=== PATIENT | male | born 1965 | race Caucasian/White ===

== ENCOUNTER 2018-05-13 11:34 | Emergency (ER) | payer OTHER, MEDICAID, SELFPAY ==
[2018-05-13 11:41] VITALS: BP 158/87; PULSE 77; RESP 15; TEMP 36.9; O2SAT 97; BMI 27.8
--- NOTE | 2018-05-13 11:41 | DI.RAD.S_ITS ---
PROCEDURE: XR HAND RT MIN 3V INDICATIONS: injury TECHNIQUE: 3 views of the hand(s) acquired. COMPARISON: None. FINDINGS: Bones: No fractures or dislocations. Carpal bones are normally aligned. No suspicious bony lesions. There is moderately severe arthritic changes at the interphalangeal joints. Bone cyst with sclerotic rim is present in the third metacarpal head. Soft tissues: No suspicious soft tissue calcifications. IMPRESSION: 1. Negative for fracture. 2. Osteoarthritis. Dictated by: Stephane Huang M.D. on 05/13/2018 at 12:01 Approved by: Stephane Huang M.D. on 05/13/2018 at 12:03
--- NOTE | 2018-05-13 12:20 | PC.NURSE ---
Pt seen at [facility] last night for sutures w/ suspected tendon injury. Here because pain was increased and [facility] thought another x ray was indicated. Sutures intact w/ bacitracin on wounds. Noted redness and warmth / swelling around sutures on right nuckles. Pt does have limited movement r/t known tendon injury and has referral to hand surgeon. Has been taking keflex for infection. Refused offer of tylenol for pain.
--- NOTE | 2018-05-13 12:32 | ED.UPPEXIN ---
HPI - Extremity Injury (Upper) <Shiloh Dailey PA-C - Last Filed: 05/13/18 15:01> General Chief Complaint: Extremity Injury, Upper Stated Complaint: CRUSH INJURY RIGHT HAND, WANTS IT RE-EVALUATED Time Seen by Provider: 05/13/18 12:32 Source: patient Mode of arrival: ambulatory Limitations: no limitations History of Present Illness HPI narrative: This 52-year-old R. handed gentleman accidentally put his right hand through a window yesterday that slipped when he was holding it. [place]. He had a small wound suture. He was referred to Orthopedics and put on antibiotics, but his appointment is not until the . Today he has had swelling and states it is really painful when the finger moves down words. He is not able to move it due to weakness and pain, and is concerned that there is some other injury. He states he had pain all night, but thinks that this will resolve when the finger is immobilized. He denies any fever, chills or sweats or other new complaints on systems review. He states that his last tetanus shot was in the last couple of years. Related Data Home Medications Medication Instructions Recorded Confirmed bupropion HCl 300 mg PO DAILY 05/13/18 05/13/18 cephalexin 500 mg PO BID 05/13/18 05/13/18 ibuprofen 400 mg PO QID PRN 05/13/18 05/13/18 Allergies Allergy/AdvReac Type Severity Reaction Status Date / Time No Known Drug Allergies Allergy Verified 05/13/18 11:41 Review of Systems <Shiloh Dailey PA-C - Last Filed: 05/13/18 15:01> Review of Systems All systems reviewed & are unremarkable except as noted in HPI and below Exam <Shiloh Dailey PA-C - Last Filed: 05/13/18 15:01> Initial Vital Signs Initial Vital Signs: Vital Signs Temperature 98.4 F 05/13/18 11:41 Pulse Rate 77 05/13/18 11:41 Respiratory Rate 15 05/13/18 11:41 Blood Pressure 158/87 H 05/13/18 11:41 Pulse Oximetry 97 05/13/18 11:41 GENERAL APPEARANCE: Patient sitting comfortably, in no distress. LUNGS: Clear to auscultation bilaterally. HEART: Rate and rhythm regular without murmur, normal S1 and S2, no S3 or S4. EXTREMITIES: R. hand warm and pink with sensation grossly intact, fingers with brisk cap refill DERM: R. hand mild erythema over the mid MC joints, no warmth or d/c. Scabbing on the 2nd and 3rd MC. Wrist is bandaged over sutures, no d/c MS: All of the right hand fingers are nodular. There is mild edema over the 2nd and 3rd MCP joints. Moderately tender. Strength is intact against resistance in all fingers except for the right middle finger, which he is able to extend but not able to flex or resist medial or lateral deviation against resistance. NEURO: sensation in the R. hand fingers is grossly intact <Hyun Grady DO - Last Filed: 05/14/18 07:33> Initial Vital Signs Initial Vital Signs: Vital Signs Temperature 98.4 F 05/13/18 11:41 Pulse Rate 77 05/13/18 11:41 Respiratory Rate 15 05/13/18 11:41 Blood Pressure 158/87 H 05/13/18 11:41 Pulse Oximetry 97 05/13/18 11:41 Course <Shiloh Dailey PA-C - Last Filed: 05/13/18 15:01> Hospital Course: I spoke with Dr. Solis, office nurse practitioner for orthopedics re: seemingly atypical flexor injury. Reviewed findings from today and previous ED record as well as my concern that patient needed to be seen fairly quickly. He had originally been referred from an outside ED for an appointment elsewhere on the . She advised that their earliest appointment would be on the . She agreed that this injury seemed atypical for wound locations, but did feel it was safe for patient to wait until then to be seen by Orthopedics. Reviewed he is on antibiotics and we did splint for comfort. In the interim, original referral office called and were able to reschedule patient with Dr. Lui 05/20, so he plans to be seen then. I discussed that in the interim he must be seen or return to ED right away if signs of infection or worsening symptoms, and he is agreeable. He will continue antibiotic cephalexin that he was prescribed yesterday. Finger was splinted in extension and shannan-taped for comfort Orders Ordered: Discontinued Medications Gabapentin (Neurontin) 900 mg PO NOW ONE Stop: 05/13/18 12:37 Last Admin: 05/13/18 13:03 Dose: Ibuprofen (Advil) 800 mg PO NOW ONE Stop: 05/13/18 13:47 Last Admin: 05/13/18 13:54 Dose: 800 mg Vital Signs - 8 hr 05/13/18 11:41 05/13/18 13:34 Temperature 98.4 F Pulse Rate 77 70 Respiratory Rate 15 16 Blood Pressure 158/87 H Blood Pressure [Left Arm] 128/82 H Pulse Oximetry 97 97 <Hyun Grady DO - Last Filed: 05/14/18 07:33> Orders Ordered: Discontinued Medications Gabapentin (Neurontin) 900 mg PO NOW ONE Stop: 05/13/18 12:37 Last Admin: 05/13/18 13:03 Dose: Ibuprofen (Advil) 800 mg PO NOW ONE Stop: 05/13/18 13:47 Last Admin: 05/13/18 13:54 Dose: 800 mg Vital Signs - 8 hr 05/13/18 11:41 05/13/18 13:34 Temperature 98.4 F Pulse Rate 77 70 Respiratory Rate 15 16 Blood Pressure 158/87 H Blood Pressure [Left Arm] 128/82 H Pulse Oximetry 97 97 MDM - Extremity Injury (Upper) <Shiloh Dailey PA-C - Last Filed: 05/13/18 15:01> Imaging Data hand: Radiologist's impression: [place] [address] XRay Report Signed Patient: Andres Arriaga MR#: [id number] : 1965 Acct:[id number] Age/Sex: 52 / M Date of Service: 05/13/18 Loc: ED Accession Number: [id number] Procedure: XR hand RT min 3V Ordering Provider: Hyun Grady D.O. PROCEDURE: XR HAND RT MIN 3V INDICATIONS: injury TECHNIQUE: 3 views of the hand(s) acquired. COMPARISON: None. FINDINGS: Bones: No fractures or dislocations. Carpal bones are normally aligned. No suspicious bony lesions. There is moderately severe arthritic changes at the interphalangeal joints. Bone cyst with sclerotic rim is present in the third metacarpal head. Soft tissues: No suspicious soft tissue calcifications. [address] [address] XRay Report Signed Patient: Andres Arriaga MR#: [id number] : 1965 Acct:[id number] Age/Sex: 52 / M Date of Service: 05/13/18 Loc: ED Accession Number: [id number] Procedure: XR hand RT min 3V Ordering Provider: Hyun Grady D.O. PROCEDURE: XR HAND RT MIN 3V INDICATIONS: injury TECHNIQUE: 3 views of the hand(s) acquired. COMPARISON: None. FINDINGS: Bones: No fractures or dislocations. Carpal bones are normally aligned. No suspicious bony lesions. There is moderately severe arthritic changes at the interphalangeal joints. Bone cyst with sclerotic rim is present in the third metacarpal head. Soft tissues: No suspicious soft tissue calcifications. IMPRESSION: 1. Negative for fracture. 2. Osteoarthritis. Dictated by: Stephane Huang M.D. on 05/13/2018 at 12:01 Approved by: Stephane Huang M.D. on 05/13/2018 at 12:03 Discharge Plan Departure Patient Disposition: Home, Self-Care Clinical Impression: Injury of tendon of finger, Hand laceration Discharge Date/Time: 05/13/18 14:30 Interventions: ED Discharge Assessment Last Done: 05/13/18 14:29 Instructions: DI for Finger Flexor Tendon Injury Activity Restrictions/Additional Instructions: Return to the nearest ED or your PCP if you have any spreading redness of the skin, increased pain, swelling, new fever or draining pus while waiting for your follow up appointment. I spoke with Dr. Solis from orthopedics today who will see you next week to evaluate your tendon function. She felt that it was reasonable for you to be seen next week, but in the interim you should keep this splinted for protection and comfort. Take ibuprofen, 800 mg every 8 hr with food routinely for the next couple of days, then as needed for pain. Your appointment is at [address] [place] [address] in [facility], 10:50 a.m. check in on May 21 Prescriptions: No Action bupropion HCl 300 mg tablet extended release 24 hr 300 mg PO DAILY RF: 0 cephalexin 500 mg Capsule 500 mg PO BID RF: 0 ibuprofen 400 mg Tablet 400 mg PO QID PRN (Reason: Pain (Scale Score 4-6)) RF: 0 Referrals: Hilario Pagan MD [Other] Geoff Lui MD [Non-Staff] - <yHun Grady DO - Last Filed: 05/14/18 07:33> Cosign ED Attending Angelitaature Attestation: I was immediately available in the department for consultation. Documentation has been reviewed. I agree with assessment and plan.
--- NOTE | 2018-05-13 12:40 | ED_ITS ---
HPI - Extremity Injury (Upper) <Shiloh Dailey PA-C - Last Filed: 05/13/18 15:01> General Chief Complaint: Extremity Injury, Upper Stated Complaint: CRUSH INJURY RIGHT HAND, WANTS IT RE-EVALUATED Time Seen by Provider: 05/13/18 12:32 Source: patient Mode of arrival: ambulatory Limitations: no limitations History of Present Illness HPI narrative: This 52-year-old R. handed gentleman accidentally put his right hand through a window yesterday that slipped when he was holding it. [place] was found. He had a small wound suture. He was referred to Orthopedics and put on antibiotics, but his appointment is not until the . Today he has had swelling and states it is really painful when the finger moves down words. He is not able to move it due to weakness and pain, and is concerned that there is some other injury. He states he had pain all night, but thinks that this will resolve when the finger is immobilized. He denies any fever, chills or sweats or other new complaints on systems review. He states that his last tetanus shot was in the last couple of years. Related Data Home Medications Medication Instructions Recorded Confirmed bupropion HCl 300 mg PO DAILY 05/13/18 05/13/18 cephalexin 500 mg PO BID 05/13/18 05/13/18 ibuprofen 400 mg PO QID PRN 05/13/18 05/13/18 Allergies Allergy/AdvReac Type Severity Reaction Status Date / Time No Known Drug Allergies Allergy Verified 05/13/18 11:41 Review of Systems <Shiloh Dailey PA-C - Last Filed: 05/13/18 15:01> Review of Systems All systems reviewed & are unremarkable except as noted in HPI and below Exam <Shiloh Dailey PA-C - Last Filed: 05/13/18 15:01> Initial Vital Signs Initial Vital Signs: Vital Signs Temperature 98.4 F 05/13/18 11:41 Pulse Rate 77 05/13/18 11:41 Respiratory Rate 15 05/13/18 11:41 Blood Pressure 158/87 H 05/13/18 11:41 Pulse Oximetry 97 05/13/18 11:41 GENERAL APPEARANCE: Patient sitting comfortably, in no distress. LUNGS: Clear to auscultation bilaterally. HEART: Rate and rhythm regular without murmur, normal S1 and S2, no S3 or S4. EXTREMITIES: R. hand warm and pink with sensation grossly intact, fingers with brisk cap refill DERM: R. hand mild erythema over the mid MC joints, no warmth or d/c. Scabbing on the 2nd and 3rd MC. Wrist is bandaged over sutures, no d/c MS: All of the right hand fingers are nodular. There is mild edema over the 2nd and 3rd MCP joints. Moderately tender. Strength is intact against resistance in all fingers except for the right middle finger, which he is able to extend but not able to flex or resist medial or lateral deviation against resistance. NEURO: sensation in the R. hand fingers is grossly intact <Hyun Grady DO - Last Filed: 05/14/18 07:33> Initial Vital Signs Initial Vital Signs: Vital Signs Temperature 98.4 F 05/13/18 11:41 Pulse Rate 77 05/13/18 11:41 Respiratory Rate 15 05/13/18 11:41 Blood Pressure 158/87 H 05/13/18 11:41 Pulse Oximetry 97 05/13/18 11:41 Course <Shiloh Dailey PA-C - Last Filed: 05/13/18 15:01> Hospital Course: I spoke with Dr. Solis, accordion repairer for orthopedics re: seemingly atypical flexor injury. Reviewed findings from today and previous ED record as well as my concern that patient needed to be seen fairly quickly. He had originally been referred from an outside ED for an appointment elsewhere on the . She advised that their earliest appointment would be on the . She agreed that this injury seemed atypical for wound locations, but did feel it was safe for patient to wait until then to be seen by Orthopedics. Reviewed he is on antibiotics and we did splint for comfort. In the interim, original referral office called and were able to reschedule patient with Dr. Lui 05/20, so he plans to be seen then. I discussed that in the interim he must be seen or return to ED right away if signs of infection or worsening symptoms, and he is agreeable. He will continue antibiotic cephalexin that he was prescribed yesterday. Finger was splinted in extension and shannan-taped for comfort Orders Ordered: Discontinued Medications Gabapentin (Neurontin) 900 mg PO NOW ONE Stop: 05/13/18 12:37 Last Admin: 05/13/18 13:03 Dose: Ibuprofen (Advil) 800 mg PO NOW ONE Stop: 05/13/18 13:47 Last Admin: 05/13/18 13:54 Dose: 800 mg Vital Signs - 8 hr 05/13/18 11:41 05/13/18 13:34 Temperature 98.4 F Pulse Rate 77 70 Respiratory Rate 15 16 Blood Pressure 158/87 H Blood Pressure [Left Arm] 128/82 H Pulse Oximetry 97 97 <Hyun Grady DO - Last Filed: 05/14/18 07:33> Orders Ordered: Discontinued Medications Gabapentin (Neurontin) 900 mg PO NOW ONE Stop: 05/13/18 12:37 Last Admin: 05/13/18 13:03 Dose: Ibuprofen (Advil) 800 mg PO NOW ONE Stop: 05/13/18 13:47 Last Admin: 05/13/18 13:54 Dose: 800 mg Vital Signs - 8 hr 05/13/18 11:41 05/13/18 13:34 Temperature 98.4 F Pulse Rate 77 70 Respiratory Rate 15 16 Blood Pressure 158/87 H Blood Pressure [Left Arm] 128/82 H Pulse Oximetry 97 97 MDM - Extremity Injury (Upper) <Shiloh Dailey PA-C - Last Filed: 05/13/18 15:01> Imaging Data hand: Radiologist's impression: [place] [address] XRay Report Signed Patient: Andres Arriaga MR#: [id number] : 1965 Acct:[id number] Age/Sex: 52 / M Date of Service: 05/13/18 Loc: ED Accession Number: [id number] Procedure: XR hand RT min 3V Ordering Provider: Hyun Grady D.O. PROCEDURE: XR HAND RT MIN 3V INDICATIONS: injury TECHNIQUE: 3 views of the hand(s) acquired. COMPARISON: None. FINDINGS: Bones: No fractures or dislocations. Carpal bones are normally aligned. No suspicious bony lesions. There is moderately severe arthritic changes at the interphalangeal joints. Bone cyst with sclerotic rim is present in the third metacarpal head. Soft tissues: No suspicious soft tissue calcifications. [address] [address] XRay Report Signed Patient: Andres Arriaga MR#: [id number] : 1965 Acct:[id number] Age/Sex: 52 / M Date of Service: 05/13/18 Loc: ED Accession Number: [id number] Procedure: XR hand RT min 3V Ordering Provider: Hyun Grady D.O. PROCEDURE: XR HAND RT MIN 3V INDICATIONS: injury TECHNIQUE: 3 views of the hand(s) acquired. COMPARISON: None. FINDINGS: Bones: No fractures or dislocations. Carpal bones are normally aligned. No suspicious bony lesions. There is moderately severe arthritic changes at the interphalangeal joints. Bone cyst with sclerotic rim is present in the third metacarpal head. Soft tissues: No suspicious soft tissue calcifications. IMPRESSION: 1. Negative for fracture. 2. Osteoarthritis. Dictated by: Stephane Huang M.D. on 05/13/2018 at 12:01 Approved by: Stephane Huang M.D. on 05/13/2018 at 12:03 Discharge Plan Departure Patient Disposition: Home, Self-Care Clinical Impression: Injury of tendon of finger, Hand laceration Discharge Date/Time: 05/13/18 14:30 Interventions: ED Discharge Assessment Last Done: 05/13/18 14:29 Instructions: DI for Finger Flexor Tendon Injury Activity Restrictions/Additional Instructions: Return to the nearest ED or your PCP if you have any spreading redness of the skin, increased pain, swelling, new fever or draining pus while waiting for your follow up appointment. I spoke with Dr. Solis from orthopedics today who will see you next week to evaluate your tendon function. She felt that it was reasonable for you to be seen next week, but in the interim you should keep this splinted for protection and comfort. Take ibuprofen, 800 mg every 8 hr with food routinely for the next couple of days, then as needed for pain. Your appointment is at [address] [place] [address] in [facility], 10:50 a.m. check in on May 21 Prescriptions: No Action bupropion HCl 300 mg tablet extended release 24 hr 300 mg PO DAILY RF: 0 cephalexin 500 mg Capsule 500 mg PO BID RF: 0 ibuprofen 400 mg Tablet 400 mg PO QID PRN (Reason: Pain (Scale Score 4-6)) RF: 0 Referrals: Hilario Pagan MD [Other] Geoff Lui MD [Non-Staff] - <Hyun Grady DO - Last Filed: 05/14/18 07:33> Cosign ED Attending Angelitaature Attestation: I was immediately available in the department for consultation. Documentation has been reviewed. I agree with assessment and plan.
[2018-05-13 13:34] VITALS: BP 128/82; PULSE 70; RESP 16; O2SAT 97
[2018-05-13] MEDS: IBUPROFEN 400 MG TABLET 800 MG PO (13:54)
== END 2018-05-13 14:30 | disposition home or self-care (01) ==
PROVIDERS: Emergency Provider Internal Medicine
DX: S69.91XA Unspecified injury of right wrist, hand and finger(s), initial encounter (principal); S61.411A Laceration without foreign body of right hand, initial encounter; W25.XXXA Contact with sharp glass, initial encounter
CPT/HCPCS: 29130; 73130; 99282; 99283

== ENCOUNTER 2018-08-12 12:38 | Emergency (ER) | payer OTHER, MEDICAID, SELFPAY ==
[2018-08-12 12:45] VITALS: BP 135/80; PULSE 96; RESP 14; TEMP 37.1; O2SAT 95; BMI 25.1
--- NOTE | 2018-08-12 12:48 | DI.RAD.S_ITS ---
PROCEDURE: XR CLAVICLE LT INDICATIONS: injury TECHNIQUE: 2 views of the clavicle were acquired. COMPARISON: [facility], , CHEST 1 VIEW, 02/25/2016, 8:38. FINDINGS: Bones: There is a fracture of the distal clavicular shaft with 2.7 cm superior displacement of the proximal fracture fragment. No suspicious bony lesions. Soft tissues: No suspicious soft tissue calcifications. IMPRESSION: Distal clavicular shaft fracture with displacement. Dictated by: Alexx Wall M.D. on 08/12/2018 at 13:15 Approved by: Alexx Wall M.D. on 08/12/2018 at 13:18
--- NOTE | 2018-08-12 14:08 | ED.UPPEXIN ---
HPI - Extremity Injury (Upper) <Shiloh Dailey PA-C - Last Filed: 08/12/18 19:04> General Chief Complaint: Extremity Injury, Upper Stated Complaint: 'CLAVICAL BROKEN IN THREE PLACES' Time Seen by Provider: 08/12/18 14:06 Source: patient Mode of arrival: ambulatory Limitations: no limitations History of Present Illness HPI narrative: this 53-year-old right handed gentleman fractured his left clavicle on Thursday (he is right-handed ). He states that he does not quite know how he fell, but states that he was loading his tall work truck and bent over with a load in his hand and somehow fell. He states he did hit his head, lose consciousness. He was seen at the local hospital and states he had numerous studies including head CT. All were negative aside from finding fracture in the clavicle. He describes some reduction of that being done. He states he has been wearing his sling and has been doing okay but when he was coming off of the [place] today he felt like the fracture slipped out or moved. He states he had more severe pain after that which is somewhat improved now. He states he had some numbness / tingling in the hand shortly after the incident that improved, but now has some tingling in his medial 3 fingers. He denies any weakness in the hand or other new complaints. Related Data Home Medications Medication Instructions Recorded Confirmed bupropion HCl 1 tab PO DAILY 08/12/18 08/12/18 Allergies Allergy/AdvReac Type Severity Reaction Status Date / Time No Known Drug Allergies Allergy Verified 08/12/18 12:45 Review of Systems <Shiloh Dailey PA-C - Last Filed: 08/12/18 19:04> Review of Systems All systems reviewed & are unremarkable except as noted in HPI and below Exam <Shiloh Dailey PA-C - Last Filed: 08/12/18 19:04> Narrative Exam Narrative: GENERAL APPEARANCE: Patient sitting comfortably, in no distress. LUNGS: Clear to auscultation bilaterally. HEART: Rate and rhythm regular without murmur, normal S1 and S2, no S3 or S4. MS: Slight skin teinting and visible/palpable deformity of L. distal clavicle with tenderness to touch. UE is in sling. [employer] strength 5/5. NEUROVASCULAR: L. UE sensation grossly intact, radial and ulnar pulses 2+, fingertips are warm and pink Initial Vital Signs Initial Vital Signs: Vital Signs Temperature 98.8 F 08/12/18 12:45 Pulse Rate 96 H 08/12/18 12:45 Respiratory Rate 14 08/12/18 12:45 Blood Pressure 135/80 08/12/18 12:45 Pulse Oximetry 95 08/12/18 12:45 <DO Linda Alamo Last Filed: 08/13/18 08:45> Initial Vital Signs Initial Vital Signs: Vital Signs Temperature 98.8 F 08/12/18 12:45 Pulse Rate 96 H 08/12/18 12:45 Respiratory Rate 14 08/12/18 12:45 Blood Pressure 135/80 08/12/18 12:45 Pulse Oximetry 95 08/12/18 12:45 Course <HERBERT Kennedy Last Filed: 08/12/18 19:04> Course Narrative: Dr. Batres construction driller for orthopedics has seen patient and reviewed films and recommended operative repair. Patient did eat a bit earlier so he has advised this can be done tomorrow. Patient is scheduled for tomorrow afternoon and will return to the hospital. Preoperative instructions reviewed including NPO after 7:00 a.m. Orders Ordered: ED Orders 08/12/18 12:48 XR clavicle LT Stat Vital Signs - 8 hr 08/12/18 12:45 08/12/18 15:22 08/12/18 15:59 Temperature 98.8 F Pulse Rate 96 H 90 94 H Respiratory Rate 14 16 Blood Pressure 135/80 147/81 H Blood Pressure [Left Arm] 143/95 H Pulse Oximetry 95 95 96 <DO Linda Alamo Last Filed: 08/13/18 08:45> Orders Ordered: ED Orders 08/12/18 12:48 XR clavicle LT Stat Vital Signs - 8 hr 08/12/18 12:45 08/12/18 15:22 08/12/18 15:59 Temperature 98.8 F Pulse Rate 96 H 90 94 H Respiratory Rate 14 16 Blood Pressure 135/80 147/81 H Blood Pressure [Left Arm] 143/95 H Pulse Oximetry 95 95 96 MDM - Extremity Injury (Upper) <HERBERT Kennedy Last Filed: 08/12/18 19:04> Imaging Data shoulder: Radiologist's impression: [place] [id number] [place] [address] XRay Report Signed Patient: Andres Arriaga TMR#: [id number] : 1965Acct:[id number] Age/Sex: 53 / MDate of Service: 08/12/18 Loc: ED Accession Number: [id number] Procedure: XR clavicle LT Ordering Provider: Shiloh Dailey P.A-C PROCEDURE: XR CLAVICLE LT INDICATIONS: injury TECHNIQUE: 2 views of the clavicle were acquired. COMPARISON: [facility], CR, CHEST 1 VIEW, 02/25/2016, 8:38. FINDINGS: Bones: There is a fracture of the distal clavicular shaft with 2.7 cm superior displacement of the proximal fracture fragment. No suspicious bony lesions. Soft tissues: No suspicious soft tissue calcifications. IMPRESSION: Distal clavicular shaft fracture with displacement. Dictated by: Alexx Wall M.D. on 08/12/2018 at 13:15 Approved by: Alexx Wall M.D. on 08/12/2018 at 13:18 Discharge Plan Departure Patient Disposition: Home Clinical Impression: Displaced fracture of clavicle Discharge Date/Time: 08/12/18 16:03 Interventions: ED Discharge Assessment Last Done: 08/12/18 15:59 Instructions: DI for Clavicle Fracture-Adult Activity Restrictions/Additional Instructions: return if you have any acutely worsening symptoms tonight. Otherwise, keep your arm in the sling and avoid working or using the arm. You can have a small breakfast before 7:00 a.m. tomorrow, otherwise nothing to eat or drink after 7:00 a.m.. Please check in at the hospital at 2:30 p.m. tomorrow, 08/13. Your surgery is scheduled at [address] Batres Prescriptions: No Action bupropion HCl 300 mg tablet extended release 24 hr 1 tab PO DAILY RF: 0 Referrals: [facility], [place] (primary care) [Other] Wilmar Batres MD [Physician] - <Hyun Grady DO - Last Filed: 08/13/18 08:45> Cosign ED Attending Cosjeffreyature Attestation: I was immediately available in the department for consultation. Documentation has been reviewed. I agree with assessment and plan.
--- NOTE | 2018-08-12 14:11 | ED_ITS ---
HPI - Extremity Injury (Upper) <Shiloh Dailey PA-C - Last Filed: 08/12/18 19:04> General Chief Complaint: Extremity Injury, Upper Stated Complaint: 'CLAVICAL BROKEN IN THREE PLACES' Time Seen by Provider: 08/12/18 14:06 Source: patient Mode of arrival: ambulatory Limitations: no limitations History of Present Illness HPI narrative: this 53-year-old right handed gentleman fractured his left clavicle on Thursday (he is right-handed ). He states that he does not quite know how he fell, but states that he was loading his tall work truck and bent over with a load in his hand and somehow fell. He states he did hit his head, lose consciousness. He was seen at the local hospital and states he had numerous studies including head CT. All were negative aside from finding fracture in the clavicle. He describes some reduction of that being done. He states he has been wearing his sling and has been doing okay but when he was coming off of the [place] today he felt like the fracture slipped out or moved. He states he had more severe pain after that which is somewhat improved now. He states he had some numbness / tingling in the hand shortly after the incident that improved, but now has some tingling in his medial 3 fingers. He denies any weakness in the hand or other new complaints. Related Data Home Medications Medication Instructions Recorded Confirmed bupropion HCl 1 tab PO DAILY 08/12/18 08/12/18 Allergies Allergy/AdvReac Type Severity Reaction Status Date / Time No Known Drug Allergies Allergy Verified 08/12/18 12:45 Review of Systems <Shiloh Dailey PA-C - Last Filed: 08/12/18 19:04> Review of Systems All systems reviewed & are unremarkable except as noted in HPI and below Exam <Shiloh Dailey PA-C - Last Filed: 08/12/18 19:04> Narrative Exam Narrative: GENERAL APPEARANCE: Patient sitting comfortably, in no distress. LUNGS: Clear to auscultation bilaterally. HEART: Rate and rhythm regular without murmur, normal S1 and S2, no S3 or S4. MS: Slight skin teinting and visible/palpable deformity of L. distal clavicle with tenderness to touch. UE is in sling. 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 NEUROVASCULAR: L. UE sensation grossly intact, radial and ulnar pulses 2+, fingertips are warm and pink Initial Vital Signs Initial Vital Signs: Vital Signs Temperature 98.8 F 08/12/18 12:45 Pulse Rate 96 H 08/12/18 12:45 Respiratory Rate 14 08/12/18 12:45 Blood Pressure 135/80 08/12/18 12:45 Pulse Oximetry 95 08/12/18 12:45 <DO Linda Alamo Last Filed: 08/13/18 08:45> Initial Vital Signs Initial Vital Signs: Vital Signs Temperature 98.8 F 08/12/18 12:45 Pulse Rate 96 H 08/12/18 12:45 Respiratory Rate 14 08/12/18 12:45 Blood Pressure 135/80 08/12/18 12:45 Pulse Oximetry 95 08/12/18 12:45 Course <HERBERT Kennedy Last Filed: 08/12/18 19:04> Course Narrative: Dr. Batres applications chemist for orthopedics has seen patient and reviewed films and recommended operative repair. Patient did eat a bit earlier so he has advised this can be done tomorrow. Patient is scheduled for tomorrow afternoon and will return to the hospital. Preoperative instructions reviewed including NPO after 7:00 a.m. Orders Ordered: ED Orders 08/12/18 12:48 XR clavicle LT Stat Vital Signs - 8 hr 08/12/18 12:45 08/12/18 15:22 08/12/18 15:59 Temperature 98.8 F Pulse Rate 96 H 90 94 H Respiratory Rate 14 16 Blood Pressure 135/80 147/81 H Blood Pressure [Left Arm] 143/95 H Pulse Oximetry 95 95 96 <DO Linda Alamo Last Filed: 08/13/18 08:45> Orders Ordered: ED Orders 08/12/18 12:48 XR clavicle LT Stat Vital Signs - 8 hr 08/12/18 12:45 08/12/18 15:22 08/12/18 15:59 Temperature 98.8 F Pulse Rate 96 H 90 94 H Respiratory Rate 14 16 Blood Pressure 135/80 147/81 H Blood Pressure [Left Arm] 143/95 H Pulse Oximetry 95 95 96 MDM - Extremity Injury (Upper) <HERBERT Kennedy Last Filed: 08/12/18 19:04> Imaging Data shoulder: Radiologist's impression: [facility] [id number] [place] [id number] XRay Report Signed Patient: Andres Arriaga TMR#: [id number] : 1965Acct:[id number] Age/Sex: 53 / MDate of Service: 08/12/18 Loc: ED Accession Number: [id number] Procedure: XR clavicle LT Ordering Provider: Shiloh Dailey P.A-C PROCEDURE: XR CLAVICLE LT INDICATIONS: injury TECHNIQUE: 2 views of the clavicle were acquired. COMPARISON: [facility], CR, CHEST 1 VIEW, 02/25/2016, 8:38. FINDINGS: Bones: There is a fracture of the distal clavicular shaft with 2.7 cm superior displacement of the proximal fracture fragment. No suspicious bony lesions. Soft tissues: No suspicious soft tissue calcifications. IMPRESSION: Distal clavicular shaft fracture with displacement. Dictated by: Alexx Wall M.D. on 08/12/2018 at 13:15 Approved by: Alexx Wall M.D. on 08/12/2018 at 13:18 Discharge Plan Departure Patient Disposition: Home Clinical Impression: Displaced fracture of clavicle Discharge Date/Time: 08/12/18 16:03 Interventions: ED Discharge Assessment Last Done: 08/12/18 15:59 Instructions: DI for Clavicle Fracture-Adult Activity Restrictions/Additional Instructions: return if you have any acutely worsening symptoms tonight. Otherwise, keep your arm in the sling and avoid working or using the arm. You can have a small breakfast before 7:00 a.m. tomorrow, otherwise nothing to eat or drink after 7: 00 a.m.. Please check in at the hospital at 2:30 p.m. tomorrow, 08/13. Your surgery is scheduled at [address] Batres Prescriptions: No Action bupropion HCl 300 mg tablet extended release 24 hr 1 tab PO DAILY RF: 0 Referrals: [facility], [place] (primary care) [Other] Wilmar Batres MD [Physician] - <Hyun Grady DO - Last Filed: 08/13/18 08:45> Cosign ED Attending Cosjeffreyature Attestation: I was immediately available in the department for consultation. Documentation has been reviewed. I agree with assessment and plan.
[2018-08-12 15:22] VITALS: BP 143/95; PULSE 90; O2SAT 95
--- NOTE | 2018-08-12 15:27 | PM.CN ---
History of Present Illness Date Patient Seen: 08/12/18 Time Patient Seen: 15:27 Chief complaint: 'CLAVICAL BROKEN IN THREE PLACES' Reason for consult: left clavicle fracture Requesting provider: Shiloh Dailey Narrative: 53-year-old male with a left clavicle fracture. He fell last Thursday off the back of his truck landing on his outstretched left arm and had immediate pop and pain. He did not hit his head. No loss of consciousness. He is not hurting anywhere else. He was seen in the emergency room and [place] and found have a clavicle fracture. He was set for outpatient follow-up with one of the orthopedists there. He has been in a sling since then. Today he was coming into [place] for work. As he drove off the [place] he had a bump and felt a severe pop over the left shoulder and everything felt loose and severely painful at the fracture. He was able to come in and go to the emergency room. He was having a little bit of tingling in the left hand but that has resolved. He is right-hand dominant. 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 [facility] Medical History History of brain cancer (Chronic) Social History Smoking Status: Never smoker alcohol intake: never substance use type: does not use Comment: His and daughter 1 year ago. Meds Home Medications Medication Instructions Recorded Confirmed Type bupropion HCl 1 tab PO DAILY 08/12/18 08/12/18 History Allergies Allergy/AdvReac Type Severity Reaction Status Date / Time No Known Drug Allergies Allergy Verified 08/12/18 12:45 Review of Systems Constitutional Constitutional: Denies frequent falls Cardiovascular Cardiovascular: Denies chest pain Respiratory Respiratory: Denies cough and Denies wheezing Gastrointestinal Gastrointestinal: Denies abdominal pain Musculoskeletal Musculoskeletal: Reports system reviewed; no additional complaints, except as documented and Reports numbness Neurologic Neurologic: Denies frequent falls and Reports numbness Psychiatric Psychiatric: Reports depression Endocrine Endocrine: Denies change in body appearance Hematologic/Lymphatic Hematologic/Lymphatic: Denies easy bleeding Allergic/Immunologic Allergic/Immunologic: Denies wheezing Exam Vital Signs (past 8 hours): - 08/12/18 12:45 08/12/18 15:22 Temperature 98.8 F Pulse Rate 96 H 90 Respiratory Rate 14 Blood Pressure 135/80 Blood Pressure [Left Arm] 143/95 H Pulse Oximetry 95 95 Oxygen Delivery Method Room Air Const Orientation: alert and oriented x3 Resp Auscultation: clear to auscultation bilaterally Cardio Rate: regular rate Rhythm: regular rhythm Extrem Other: Mild deformity visible over the left clavicle with some prominence of the skin. Intact integument. Minimal bruising. Intact sensation to the left arm. Good desizing machine back tender. Able to flex and extend the elbow wrist and fingers. Objective Imaging Left clavicle x-ray: My impression: Displaced clavicle shaft fracture. This is just proximal to the junction of the middle and distal 3rd. Displaced 2.5 cm. Assessment & Plan (1) Closed left clavicular fracture: Current visit: Yes Status: Acute Plan: Assessment/Plan Narrative: He has a displaced clavicle fracture. Fractures with this much displacement in this location tend to do better with ORIF with increased functional status and better union rates. I recommend proceeding with surgery. Risks and benefits of surgery were discussed including not limited to medical risk with heart attack, stroke, , DVT, PE, infection, bleeding, scarring, nerve injury with pain numbness weakness, vascular injury, pulmonary injury, nonunion, decreased range of motion, stiffness, failure to alleviate symptoms, need for further surgery. He would like to proceed. He had food earlier and we will get this set up for surgery tomorrow. We will plan on ORIF of the left clavicle fracture.
--- NOTE | 2018-08-12 15:36 | P.CONS_ITS ---
History of Present Illness Date Patient Seen: 08/12/18 Time Patient Seen: 15:27 Chief complaint: 'CLAVICAL BROKEN IN THREE PLACES' Reason for consult: left clavicle fracture Requesting provider: Shiloh Dailey Narrative: 53-year-old male with a left clavicle fracture. He fell last Thursday off the back of his truck landing on his outstretched left arm and had immediate pop and pain. He did not hit his head. No loss of consciousness. He is not hurting anywhere else. He was seen in the emergency room and [place] and found have a clavicle fracture. He was set for outpatient follow-up with one of the orthopedists there. He has been in a sling since then. Today he was coming into [place] for work. As he drove off the [place] he had a bump and felt a severe pop over the left shoulder and everything felt loose and severely painful at the fracture. He was able to come in and go to the emergency room. He was having a little bit of tingling in the left hand but that has resolved. He is right-hand dominant. 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 [facility] Medical History History of brain cancer (Chronic) Social History Smoking Status: Never smoker alcohol intake: never substance use type: does not use Comment: His and daughter 1 year ago. Meds Home Medications Medication Instructions Recorded Confirmed Type bupropion HCl 1 tab PO DAILY 08/12/18 08/12/18 History Allergies Allergy/AdvReac Type Severity Reaction Status Date / Time No Known Drug Allergies Allergy Verified 08/12/18 12:45 Review of Systems Constitutional Constitutional: Denies frequent falls Cardiovascular Cardiovascular: Denies chest pain Respiratory Respiratory: Denies cough and Denies wheezing Gastrointestinal Gastrointestinal: Denies abdominal pain Musculoskeletal Musculoskeletal: Reports system reviewed; no additional complaints, except as documented and Reports numbness Neurologic Neurologic: Denies frequent falls and Reports numbness Psychiatric Psychiatric: Reports depression Endocrine Endocrine: Denies change in body appearance Hematologic/Lymphatic Hematologic/Lymphatic: Denies easy bleeding Allergic/Immunologic Allergic/Immunologic: Denies wheezing Exam Vital Signs (past 8 hours): - 08/12/18 12:45 08/12/18 15:22 Temperature 98.8 F Pulse Rate 96 H 90 Respiratory Rate 14 Blood Pressure 135/80 Blood Pressure [Left Arm] 143/95 H Pulse Oximetry 95 95 Oxygen Delivery Method Room Air Const Orientation: alert and oriented x3 Resp Auscultation: clear to auscultation bilaterally Cardio Rate: regular rate Rhythm: regular rhythm Extrem Other: Mild deformity visible over the left clavicle with some prominence of the skin. Intact integument. Minimal bruising. Intact sensation to the left arm. 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 Able to flex and extend the elbow wrist and fingers. Objective Imaging Left clavicle x-ray: My impression: Displaced clavicle shaft fracture. This is just proximal to the junction of the middle and distal 3rd. Displaced 2.5 cm. Assessment & Plan (1) Closed left clavicular fracture: Current visit: Yes Status: Acute Plan: Assessment/Plan Narrative: He has a displaced clavicle fracture. Fractures with this much displacement in this location tend to do better with ORIF with increased functional status and better union rates. I recommend proceeding with surgery. Risks and benefits of surgery were discussed including not limited to medical risk with heart attack, stroke, , DVT, PE, infection, bleeding, scarring, nerve injury with pain numbness weakness, vascular injury, pulmonary injury, nonunion, decreased range of motion, stiffness, failure to alleviate symptoms, need for further surgery. He would like to proceed. He had food earlier and we will get this set up for surgery tomorrow. We will plan on ORIF of the left clavicle fracture.
[2018-08-12 15:59] VITALS: BP 147/81; PULSE 94; RESP 16; O2SAT 96
== END 2018-08-12 16:03 | disposition home or self-care (01) ==
PROVIDERS: Emergency Provider Internal Medicine
DX: S42.002A Fracture of unspecified part of left clavicle, initial encounter for closed fracture (principal); W18.30XA Fall on same level, unspecified, initial encounter
CPT/HCPCS: 73000; 99282; 99283

== ENCOUNTER 2018-08-13 13:51 | Day surgery (SDC) | payer OTHER, MEDICAID, SELFPAY ==
[2018-08-13] VITALS (9 sets, daily range): BP systolic 105–138; BP diastolic 73–88; PULSE 78–98; RESP 6–17; TEMP 36.6–37.1; O2SAT 89–97
--- NOTE | 2018-08-13 | DI.RAD.S_ITS ---
PROCEDURE: XR CLAVICLE LT INDICATIONS: LEFT CLAVICLE ORIF TECHNIQUE: 2 views of the clavicle were acquired. COMPARISON: [facility], , XR CLAVICLE LT, 08/12/2018, 12:57. FINDINGS: Intraoperative fluoroscopy documents the reduction and internal fixation of the previously noted distal left clavicular fracture, resulting in improved alignment of the fracture fragments. IMPRESSION: Intraoperative fluoroscopy documents the reduction and internal fixation of the previously noted distal left clavicular fracture, resulting in improved alignment of the fracture fragments. Please see the operative report for further details. Dictated by: Wong Garcia M.D. on 08/13/2018 at 19:09 Approved by: Wong Garcia M.D. on 08/13/2018 at 19:10
[2018-08-13] MEDS: LACTATED RINGERS 1,000 ML 42 ML IV (14:40)
--- NOTE | 2018-08-13 16:31 | PM.PREOP ---
Pre-operative Note Interval Note Pre-op Check: Yes History & Physical Reviewed by Physician and Yes Exam Performed Changes: No
--- NOTE | 2018-08-13 16:33 | P.OP_ITS ---
Operative Date/Time/Diagnoses Date of procedure: 08/13/18 Time of procedure: 18:39 Pre-op diagnosis: Left clavicle shaft fracture, displaced Post-op diagnosis: same Procedure & Clinicians Procedure: ORIF of left clavicle shaft fracture Same procedure as scheduled: Yes Indications: 53-year-old male with a displaced left clavicle fracture. It was felt that he would benefit from operative reduction and stabilization. Risks and benefits of surgery were discussed and appropriate consents were obtained. Surgeon: Wilmar Batres Click Yes if Unassisted: Yes Anesthesia Type: General Operative Notes Findings: None Closure Type: primary Specimen(s): none sent Implants & Drains: Acumed clavicle plate Estimated Blood Loss (mL): 10 Procedure in detail: Patient brought to the operating room and intubated on the table. Attention was turned towards the well-marked left clavicle. A time-out was performed. Preoperative antibiotics were given. The left arm and chest were prepped and draped in the standard sterile fashion. We made a 10 cm incision along the left clavicle. We used blunt dissection to spread through the soft tissue. An elevator was used to expose the fracture. The 2 pieces the shaft were grabbed with clamps and the fracture was reduced. It was checked under x-ray. We then trialed a plate and placed it over the clavicle and held it with a clamp. We placed screws through the clavicle plate using standard AO technique. Care was taken to protect underneath the bone so the drill would not penetrate. Once the plate was filled with screws, final x- rays were taken. The wound was irrigated. Deep, superficial, and skin were closed. He was extubated and brought to recovery with no complications. Complications: none Condition: stable Disposition: PACU Plan for aftercare: Outpatient. Sling for left arm. Can remove for gentle range of motion.
[2018-08-13] MEDS: CEFAZOLIN 2 GM/100 ML FROZ.PIGGY IV (16:38)
[2018-08-13] MEDS: BUPIVACAINE 0.5% W/ EPI (PF) VIAL 30 ML INJ (17:34)
[2018-08-13] MEDS: SODIUM CHLORIDE 0.9% 1,000 ML, GENTAMICIN 80 MG IRR (17:35)
[2018-08-13] MEDS: ONDANSETRON 4 MG/2 ML INJ IV (18:50)
[2018-08-13] MEDS: METOCLOPRAMIDE 10 MG/2 ML INJ IV (18:55)
[2018-08-13] MEDS: fentaNYL 100 MCG/2 ML INJ 50 MCG IV (19:14)
--- NOTE | 2018-08-13 19:16 | SUR.PHASEI ---
pt awoke, dry heaving and nauseated, medicated with ondansetron and reglan. nausea subsided, medicated with fentanyl for pain- 8/10 to l clavicle.
--- NOTE | 2018-08-13 20:23 | SUR.PHASEII ---
pt initially wanted pain medication prior to discharge. order obtained form dr vega, obtained from pharmacy then offered to pt. pt then decided he did not want med, but [place]. assisted pt to dress, pt left when dressed and left in stable condition. dressing remained c/d/i and sling placed on pt prior to discharge.
== END 2018-08-13 20:00 | disposition home or self-care (01) ==
PROVIDERS: Visit Provider Orthopaedic Surgery
PROC: 0PSB04Z Reposition Left Clavicle with Internal Fixation Device, Open Approach (ICD-10-PCS; CPT 23515; principal; 2018-08-13 16:00)
DX: S42.022A Displaced fracture of shaft of left clavicle, initial encounter for closed fracture (principal); W17.89XA Other fall from one level to another, initial encounter
CPT/HCPCS: 23515; 73000; 76000; J0690; J1100; J1170; J2250; J2405; J2704; J2765; J3010

== ENCOUNTER 2019-03-13 15:20 | Emergency (ER) | payer OTHER, MEDICAID, SELFPAY ==
[2019-03-13 15:31] VITALS: BP 150/65; PULSE 90; RESP 18; TEMP 36.9; O2SAT 95; BMI 26.4
--- NOTE | 2019-03-13 15:40 | DI.RAD.S_ITS ---
PROCEDURE: XR SHOULDER LT MIN 2V INDICATIONS: L shoulder/clavicle pain and s/p L shoulder surgery 2 months TECHNIQUE: 3 views of the shoulder were acquired. COMPARISON: None. FINDINGS: Bones: ORIF of the left clavicle. Hardware is intact. No fractures or dislocations. No suspicious bony lesions. Visualized ribs appear intact. Soft tissues: No suspicious soft tissue calcifications. IMPRESSION: ORIF left clavicle. No acute fracture. No osseous lesion. If clinical suspicion and/or symptoms persist, further assessment with repeat plainfilms, or advanced imaging (e.g., CT, MRI, or bone scan) may be helpful for further assessment. Dictated by: Sebastian Montero M.D. on 03/13/2019 at 15:56 Approved by: Sebastian Montero M.D. on 03/13/2019 at 15:57
--- NOTE | 2019-03-13 15:41 | DI.RAD.S_ITS ---
PROCEDURE: XR CHEST 2V INDICATIONS: SOB and pain with inhalation/cough TECHNIQUE: 2 views of the chest were acquired. COMPARISON: [facility], , CHEST 1 VIEW, 02/25/2016, 8:38. FINDINGS: Surgical changes and devices: ORIF of the left clavicle. Lungs and pleura: Lungs are clear. No pleural effusions or pneumothorax. Mediastinum: Mediastinal contours are normal. Heart size is normal. Bones and chest wall: No suspicious bony abnormalities. Soft tissues appear unremarkable. IMPRESSION: No acute process. Dictated by: Sebastian Montero M.D. on 03/13/2019 at 15:56 Approved by: Sebastian Montero M.D. on 03/13/2019 at 15:56
--- NOTE | 2019-03-13 16:35 | ED.UPPEXIN ---
HPI - Extremity Injury (Upper) <ELIZABETH Dewey - Last Filed: 03/13/19 17:03> General Chief Complaint: Extremity Injury, Upper Stated Complaint: left clavicle sharp pain/sob Time Seen by Provider: 03/13/19 16:34 Source: patient Mode of arrival: ambulatory Limitations: no limitations History of Present Illness HPI narrative: pt says his L shoulder hurts and it hurts worse with certain movements, says he was holding a horse about a week ago, and the horse pulled, causing his arm to be pulled backwards, he had surgery in there and it feels like the screws or plate is coming out, R handed complaint: injury to: left Onset (ago): week(s) Other Extremity Injury: Left: shoulder Other injuries: none Handedness: right Place: home Relieving factors: none Exacerbating factors: movement of extremity Context: other Associated symptoms: denies other symptoms Treatments prior to arrival: other (none, says he doesn't like meds and won't take anything) Related Data Home Medications Medication Instructions Recorded Confirmed bupropion HCl 1 tab PO DAILY 08/12/18 08/13/18 Previous Rx's Medication Instructions Recorded hydromorphone [Dilaudid] 2 mg PO Q4H PRN #14 tab 08/13/18 Allergies Allergy/AdvReac Type Severity Reaction Status Date / Time No Known Drug Allergies Allergy Verified 08/12/18 12:45 Review of Systems <ELIZABETH Dewey - Last Filed: 03/13/19 17:03> Review of Systems ROS Unobtainable: All systems reviewed & are unremarkable except as noted in HPI and below Constitutional Reports as per HPI and Reports system reviewed and no additional complaints, except as docu ENT Ears, Nose, Mouth, and Throat: Denies neck pain Musculoskeletal Reports as per HPI, Denies abnormal gait, Denies back pain, Denies deformity, Denies joint swelling, Denies limited range of motion, Denies muscle weakness, Denies neck pain, Denies numbness and Denies tingling Integumentary/Breasts Reports as per HPI, Denies change in pigmentation, Denies unusual bruising and Denies wounds Neurologic Denies abnormal gait, Denies numbness and Denies tingling PFSH <ELIZABETH Dewey - Last Filed: 03/13/19 17:03> Medical History History of brain cancer (Chronic) Social History Smoking Status: Never smoker alcohol intake: never substance use type: does not use Social History Smoking Status: Never smoker alcohol intake: never substance use type: does not use Exam <ELIZABETH Dewey - Last Filed: 03/13/19 17:03> Initial Vital Signs Initial Vital Signs: Vital Signs Temperature 98.5 F 03/13/19 15:31 Pulse Rate 90 03/13/19 15:31 Respiratory Rate 18 03/13/19 15:31 Blood Pressure 150/65 H 03/13/19 15:31 Pulse Oximetry 95 03/13/19 15:31 Const General: cooperative, healthy appearing, comfortable and well developed Nutritional Appearance: average body habitus Orientation: alert, awake and oriented x3 Chest Chest: normal inspection of the chest and normal palpation of entire chest wall Breast inspection: normal inspection of the breasts Resp Effort & Inspection: normal respiratory effort and able to speak in complete sentences Back/Spine/Pelvis Back: normal to inspection Cervical Spine: cervical ROM normal Thoracic/Lumbar Spine: thoraco-lumbar ROM limited Skin General: no rashes or lesions noted, elasticity normal, turgor normal and warm Neuro General: alert, awake and oriented x3 Cranial Nerves: CN's II-XI intact bilaterally Cognition: normal cognition Speech: speech normal Motor: muscle tone normal throughout Sensory Exam: no sensory deficits noted Extrem General: normal to inspection and full ROM Right upper extremity: normal to inspection and full ROM Left upper extremity: normal to inspection, full ROM, normal capillary refill and shoulder/upper arm Details: inspection abnormal and normal ROM; no tenderness, no swelling, abnormal ROM, no ecchymosis, no crepitus and no unsual warmth; no edema Right lower extremity: full ROM Psych Appearance: grossly normal and well kempt Mental Status: mental status grossly normal Speech and Movement: speech and movement normal Mood: congruent mood Affect: normal affect Attitude: cooperative Thought Process: normal Thought Content: normal Judgment: judgment good <Hyun Grady DO - Last Filed: 03/14/19 10:52> Initial Vital Signs Initial Vital Signs: Vital Signs Temperature 98.5 F 03/13/19 15:31 Pulse Rate 90 03/13/19 15:31 Respiratory Rate 18 03/13/19 15:31 Blood Pressure 150/65 H 03/13/19 15:31 Pulse Oximetry 95 03/13/19 15:31 Course <ELIZABETH Dewey - Last Filed: 03/13/19 17:03> Course Narrative: xrays and dc plan discussed, and pt politely declined my offer for nsaid injection or pain med here, instructed to f/u with surgeon Orders Ordered: ED Orders 03/13/19 15:40 XR shoulder LT min 2V Stat 03/13/19 15:41 XR chest 2V Stat Vital Signs - 8 hr 03/13/19 15:31 Temperature 98.5 F Pulse Rate 90 Respiratory Rate 18 Blood Pressure 150/65 H Pulse Oximetry 95 <Hyun Grady DO - Last Filed: 03/14/19 10:52> Orders Ordered: ED Orders 03/13/19 15:40 XR shoulder LT min 2V Stat 03/13/19 15:41 XR chest 2V Stat Vital Signs - 8 hr 03/13/19 15:31 Temperature 98.5 F Pulse Rate 90 Respiratory Rate 18 Blood Pressure 150/65 H Pulse Oximetry 95 MDM - Extremity Injury (Upper) <ELIZABETH Dewey - Last Filed: 03/13/19 17:03> Imaging Data shoulder: Radiologist's impression: PROCEDURE: XR CHEST 2V INDICATIONS: SOB and pain with inhalation/cough TECHNIQUE: 2 views of the chest were acquired. COMPARISON: [facility], , CHEST 1 VIEW, 02/25/2016, 8:38. FINDINGS: Surgical changes and devices: ORIF of the left clavicle. Lungs and pleura: Lungs are clear. No pleural effusions or pneumothorax. Mediastinum: Mediastinal contours are normal. Heart size is normal. Bones and chest wall: No suspicious bony abnormalities. Soft tissues appear unremarkable. IMPRESSION: No acute process. Dictated by: Sebastian Montero M.D. on 03/13/2019 at 15:56 Approved by: Sebastian Montero M.D. on 03/13/2019 at 15:56 PROCEDURE: XR SHOULDER LT MIN 2V INDICATIONS: L shoulder/clavicle pain and s/p L shoulder surgery 2 months TECHNIQUE: 3 views of the shoulder were acquired. COMPARISON: None. FINDINGS: Bones: ORIF of the left clavicle. Hardware is intact. No fractures or dislocations. No suspicious bony lesions. Visualized ribs appear intact. Soft tissues: No suspicious soft tissue calcifications. IMPRESSION: ORIF left clavicle. No acute fracture. No osseous lesion. If clinical suspicion and/or symptoms persist, further assessment with repeat plainfilms, or advanced imaging (e.g., CT, MRI, or bone scan) may be helpful for further assessment. Dictated by: Sebastian Montero M.D. on 03/13/2019 at 15:56 Approved by: Sebastian Montero M.D. on 03/13/2019 at 15:57 Discharge Plan Departure Patient Disposition: Home Clinical Impression: Sprain of left shoulder Qualifiers: Encounter type: initial encounter Shoulder sprain type: unspecified sprain Qualified Code(s): S43.402A - Unspecified sprain of left shoulder joint, initial encounter Discharge Date/Time: 03/13/19 17:34 Interventions: ED Discharge Assessment Last Done: 03/13/19 17:34 Instructions: DI for Shoulder Sprain Prescriptions: No Action bupropion HCl 300 mg tablet extended release 24 hr 1 tab PO DAILY RF: 0 hydromorphone [Dilaudid] 2 mg tablet 2 mg PO Q4H PRN (Reason: pain) Qty: 14 RF: 0 Referrals: Johnnie Llamas MD [Physician] - (follow up with Orthopedist in approx 5 days for continued pain/issues/concerns) <Hyun Grady DO - Last Filed: 03/14/19 10:52> Cosign ED Attending Cosjeffreyature Attestation: I was immediately available in the department for consultation. Documentation has been reviewed. I agree with assessment and plan.
[2019-03-13 17:34] VITALS: BP 150/55; PULSE 88; RESP 18; O2SAT 94
== END 2019-03-13 17:34 | disposition home or self-care (01) ==
PROVIDERS: Emergency Provider Nurse Practitioner
DX: S43.402A Unspecified sprain of left shoulder joint, initial encounter (principal); R06.02 Shortness of breath
CPT/HCPCS: 71046; 73030; 99282; 99283

== ENCOUNTER 2020-10-26 10:33 | Emergency (ER) | payer OTHER, MEDICAID, SELFPAY ==
[2020-10-26 11:01] VITALS: BP 146/90; PULSE 74; RESP 18; TEMP 37; O2SAT 97; BMI 26.9
--- NOTE | 2020-10-26 11:10 | ED_ITS ---
HPI - Wound/Laceration General Chief Complaint: Wound/Laceration Stated Complaint: cut right finger/infected Time Seen by Provider: 10/26/20 10:49 Source: patient Mode of arrival: Family Vehicle Limitations: no limitations History of Present Illness HPI narrative: Patient is a 55-year-old male here for evaluation of a cut to the back of his right index finger. He states that he cut it while he was at work and went to an outside emergency department and had 3 stitches placed in it. States this was 4-5 days ago. He thinks that it is somewhat red around the area and last evening and did drain some material out of and he was concerned about infection. He denies any fevers. He is not currently on any antibiotics. He has minimal if any discomfort around the area. Related Data Home Medications Medication Instructions Recorded Confirmed bupropion HCl 1 tab PO DAILY 08/12/18 08/13/18 Previous Rx's Medication Instructions Recorded hydromorphone [Dilaudid] 2 mg PO Q4H PRN #14 tab 08/13/18 cephalexin [Keflex] 500 mg PO QID 7 Days #28 cap 10/26/20 Allergies Allergy/AdvReac Type Severity Reaction Status Date / Time No Known Drug Allergies Allergy Verified 10/26/20 11:05 Review of Systems Constitutional Constitutional: Denies fever(s) Musculoskeletal Musculoskeletal: Denies tingling Comments: Cut to back of right index finger Integumentary/Breasts Comments: Cut back her right index finger with redness and drainage Neurologic Neurologic: Denies tingling Psychiatric Psychiatric: Denies anxiety Hematologic/Lymphatic Hematologic/Lymphatic: Denies easy bleeding and Denies easy bruising Patient History Medical History History of brain cancer Social History Smoking Status: Never smoker alcohol intake: never substance use type: does not use Smoking Status: Never smoker alcohol intake frequency: 0-2 drinks per day Substance Use Type: does not use Exam Initial Vital Signs Initial Vital Signs: Vital Signs Temperature 98.6 F 10/26/20 11:01 Pulse Rate 74 10/26/20 11:01 Respiratory Rate 18 10/26/20 11:01 Blood Pressure 146/90 H 10/26/20 11:01 Pulse Oximetry 97 10/26/20 11:01 Const General: cooperative and comfortable Limitations: mental status not altered [facility] Head: normal to inspection and normocephalic Cardio Pulses: radial pulses present on the right Skin Other: Patient has a 2 cm cut on the back of his right index finger just distal to the MCP joint. There [address] There is a small amount of redness around the area. There is no active drainage. Extrem Other: Full range of motion of the MCP joint and PIP joint of the right index finger. Psych Appearance: grossly normal and well kempt Course Vital Signs Vital signs: Vital Signs - 8 hr 10/26/20 11:01 Temperature 98.6 F Pulse Rate 74 Respiratory Rate 18 Blood Pressure 146/90 H Pulse Oximetry 97 MDM - Wound/Laceration MDM Narrative Medical decision making narrative: The wound seems to be healing well. The small amount of redness around the area is not in and of itself concerning for an infection. It appears to be a well-healing wound however the drainage he reported last evening is what would be concerning about infection. I was unable to express any material from it today given the fact that it was a dirty wound, redness around the wound, drainage last evening the plan will be is to send him home with a prescription for antibiotics. He was instructed to hold on filling this prescription for the next 24-48 hours. If the redness got worse or a drain more material were he started having pain or fevers that he needed to start the antibiotics. If this did not happen he was just going to discard the prescription. He understands the stitches need to be removed in 7-10 days after they were placed. He was given other return precautions. He expressed understanding and agreement. Discharge Plan Departure Patient Disposition: Home Clinical Impression: Laceration Instructions: How to Care for a Surgical Wound-Stitches Activity Restrictions/Additional Instructions: Hold on the prescription for antibiotics that you were given today for the next 24-48 hours. If the area becomes more red or more painful or starts draining more start taking them as directed. If it continues to progress how it is the just discard the prescription. The stitches do need to come out 7-10 days after they were put in. Return to the emergency department for any new or worsening symptoms Prescriptions: New cephalexin [Keflex] 500 mg capsule 500 mg PO QID 7 Days Qty: 28 RF: 0 No Action bupropion HCl 300 mg tablet extended release 24 hr 1 tab PO DAILY RF: 0 hydromorphone [Dilaudid] 2 mg tablet 2 mg PO Q4H PRN (Reason: pain) Qty: 14 RF: 0
== END 2020-10-26 11:34 | disposition home or self-care (01) ==
PROVIDERS: Emergency Provider Emergency Medicine
DX: S61.210A Laceration without foreign body of right index finger without damage to nail, initial encounter (principal)
CPT/HCPCS: 99281